=== PATIENT | female | born 1950 | race Hispanic/Latino ===

== ENCOUNTER 2017-11-15 07:43 | Day surgery (SDC) | payer MEDICARE, BC ==
[2017-11-07 08:27] VITALS: BMI 34.9
[2017-11-15] MEDS ORDERED: Sodium Chloride 0.9% 1,000 ML IV SCH (09:00)
[2017-11-15] MEDS ORDERED: Midazolam 2 MG/2 ML VIAL ONE (09:43)
[2017-11-15] MEDS ORDERED: Propofol 10 mg/ml Inj (20 ML) ONE (09:43)
[2017-11-15 11:47] VITALS: BP 112/68; PULSE 71; RESP 16; TEMP 97.6; O2SAT 98
== END 2017-11-15 12:04 | disposition home or self-care (01) ==
LOC: ENDO 07:43
PROVIDERS: ATTEND Internal Medicine
DX: D12.7 Benign neoplasm of rectosigmoid junction (principal); K57.30 Diverticulosis of large intestine without perforation or abscess without bleeding; K64.8 Other hemorrhoids; K64.4 Residual hemorrhoidal skin tags; I10 Essential (primary) hypertension; E78.5 Hyperlipidemia, unspecified; Z88.2 Allergy status to sulfonamides; K52.9 Noninfective gastroenteritis and colitis, unspecified
CPT/HCPCS: 45380; 88305; J2250; J2704; J7040